=== PATIENT | male | born 1985 | race Caucasian/White ===

== ENCOUNTER 2019-11-21 12:25 | Emergency (ER) | payer OTHER, SELFPAY ==
[2019-11-21 12:43] VITALS: BP 135/110; PULSE 70; RESP 18; TEMP 36.9; O2SAT 96; BMI 34.8
--- NOTE | 2019-11-21 12:57 | DI.RAD.S_ITS ---
PROCEDURE: XR HIP W PEL IF DONE RT 2V INDICATIONS: Right groin, hip, pelvis pain TECHNIQUE: AP pelvis with lateral view(s) of the right hip(s). COMPARISON: None. FINDINGS: Bones: No fractures or dislocations. Pelvic ring appears intact. No suspicious bony lesions. There is moderate left-sided and mild right-sided hip joint space narrowing. Soft tissues: The visualized bowel gas pattern is normal. No suspicious soft tissue calcifications. IMPRESSION: Hip joint space narrowing is seen, left worse than right. If it would be helpful for clinical management decision making, please consider a dedicated MRI for further evaluation (assuming that there is no contraindication). If there is strong clinical concern for a labral abnormality, this should be performed according to the arthrogram protocol. Dictated by: Alex Alonzo M.D. on 11/21/2019 at 12:24 Approved by: Alex Alonzo M.D. on 11/21/2019 at 12:25
--- NOTE | 2019-11-21 13:02 | ED_ITS ---
HPI - Back Pain/Injury <Lizandro HallEVIN Merchant - Last Filed: 11/21/19 23:01> General Chief Complaint: Back Pain/Injury Stated Complaint: right side hip pain, radiates down leg Time Seen by Provider: 11/21/19 12:38 Source: patient Limitations: no limitations History of Present Illness HPI Narrative: This is a 34-year-old male, smoker, who presents to ED with his sister with chief complain of right low back pain radiating to right groin and anterior aspect of limb down to his foot for last 8 days. Patient reports he had taken an accidental fall 3 days prior to his back pain started and landed on his left side of body when he went away for hunting but this did not bothered him for 3 days. Patient reports pain increases with sitting, leg raise and lying on his back to go to sleep. He has describes pain as pressure and rates as a 7/10. Patient wanted to see a chiropractor a couple of days ago but they're not available. Patient denies fever, chills, nausea or vomiting, urinary problems or incontinence for urine and stools. Patient denies recent manipulation or surgeries on his back. Patient does have history of chronic right-sided low back pain radiating to right buttock. Related Data Previous Rx's Medication Instructions Recorded penicillin V potassium 500 mg PO Q6H 7 Days #0 tab 12/20/16 cyclobenzaprine 10 mg PO Q12H #10 tab 11/21/19 hydrocodone-acetaminophen [[place]] 1 tab PO TID PRN #7 tab 11/21/19 prednisone 40 mg PO DAILY 4 Days #8 tab 11/21/19 Allergies Allergy/AdvReac Type Severity Reaction Status Date / Time No Known Drug Allergies Allergy Verified 11/21/19 12:43 Review of Systems <Lizandro LuisEVIN borrego - Last Filed: 11/21/19 23:01> Review of Systems Narrative: General: Denies fever, chills, fatigue, malaise, sweats. HEENT: Denies sinus pain, ear pain, sore throat, difficulty swallowing, dizziness. Respiratory: Denies dyspnea, cough, wheezing, hemoptysis, sputum. Cardiovascular: Denies chest pain, palpitations, orthopnea, edema. Gastrointestinal: Denies nausea, vomiting, abdominal pain, diarrhea, constipation, melena. : Denies dysuria, frequency, incontinence, hematuria, urinary retention. Musculoskeletal: See HPI Skin: Denies rash, skin lesions, or other. Neurologic: Denies weakness, headache, numbness, change in speech, confusion, seizures, incoordination. Psychiatric: No concerning psychosocial issues. 12-point review of systems is negative except for those stated above. Patient History <EVIN Ortega - Last Filed: 11/21/19 23:01> Medical History Low back pain (Acute) Surgical History No pertinent past surgical history (Acute) Social History Smoking Status: Current every day smoker Smoking Status: Current every day smoker Substance Use Type: marijuana Exam <EVIN Ortega - Last Filed: 11/21/19 23:01> Narrative Exam Narrative: General appearance: well developed, well nourished, appears to be in discomfort and tearful. Head: normocephalic, atraumatic, no scalp lesions, non-tender. ENT: Bilateral auditory canals and tympanic membranes clear. Hearing grossly intact. Nose without bleeding, purulent discharge, septal hematoma or deviation. Turbinate without erythema or swelling. Facial sinuses nontender to palpate. Mucous membrane moist, no mucosal lesion. Throat without erythema, tonsillar hypertrophy or exudate. Uvula in midline, airway patent. Neck/Thyroid: neck supple, full range of motion, no visible masses or meningeal signs. No JVD, non-tender without lymphadenopathy. Skin: no suspicious rashes, lesions over visible areas. Warm and dry and appropriate color for ethnicity. Heart: no clubbing, no cyanosis, no edema. S1 and S2 normal. RRR w/o murmurs, clicks, or bruits. Lungs: Breathing even and unlabored. No stridor. No accessory muscles used. Able to speak in full sentences. Chest: normal shape and expansion. Abdomen: non-obese, non-distended. Neurologic: alert and oriented. 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 Psych: good eye contact, normal affect. Initial Vital Signs Initial Vital Signs: Vital Signs Temperature 98.4 F 11/21/19 12:43 Pulse Rate 70 11/21/19 12:43 Respiratory Rate 18 11/21/19 12:43 Blood Pressure 135/110 H 11/21/19 12:43 Pulse Oximetry 96 11/21/19 12:43 Back/Spine/Pelvis Back: normal to inspection, back tenderness (Right lower lumbar), No CVA tenderness, No ecchymosis, No erythema, No mass and No warmth Thoracic/Lumbar Spine: thoracic and lumbar spine normal to inspection, No surgical scar(s) present, No bend over test abnormal, pain with thoraco-lumbar ROM (Mildly increased pain with twisting, able to flex forward w/o difficulty), paraspinal tenderness (On right-sided), No scoliosis, No thoracic spinal tenderness, No lumbar spinal tenderness, straight leg raise positive and No tilt present <Katia Xie DO - Last Filed: 11/22/19 16:25> Initial Vital Signs Initial Vital Signs: Vital Signs Temperature 98.4 F 11/21/19 12:43 Pulse Rate 70 11/21/19 12:43 Respiratory Rate 18 11/21/19 12:43 Blood Pressure 135/110 H 11/21/19 12:43 Pulse Oximetry 96 11/21/19 12:43 Scores <EVIN Ortega - Last Filed: 11/21/19 23:01> GCS Fabrice coma scale eye opening: Spontaneous [place] coma scale verbal response: Orientated [place] coma scale motor response: Obey commands Fabrice coma scale total score: 15 Course <EVIN Ortega - Last Filed: 11/21/19 23:01> Orders Ordered: Discontinued Medications Acetaminophen (Tylenol) 975 mg PO NOW ONE Stop: 11/21/19 12:58 Last Admin: 11/21/19 13:11 Dose: 975 mg Documented by: RACHELE Cyclobenzaprine HCl (Flexeril) 10 mg PO NOW ONE Stop: 11/21/19 12:58 Last Admin: 11/21/19 13:12 Dose: 10 mg Documented by: RACHELE Ketorolac Tromethamine (Toradol) 30 mg IM NOW ONE Stop: 11/21/19 12:58 Last Admin: 11/21/19 13:12 Dose: 30 mg Documented by: RACHELE Prednisone (Deltasone) 40 mg PO NOW ONE Stop: 11/21/19 13:00 Last Admin: 11/21/19 13:12 Dose: 40 mg Documented by: RACHELE Vital Signs Vital signs: Vital Signs - 8 hr 11/21/19 15:33 Pulse Rate 92 H Respiratory Rate 18 Blood Pressure [Left Arm] 135/95 H Pulse Oximetry 97 <Katia Xie DO - Last Filed: 11/22/19 16:25> Orders Ordered: Discontinued Medications Acetaminophen (Tylenol) 975 mg PO NOW ONE Stop: 11/21/19 12:58 Last Admin: 11/21/19 13:11 Dose: 975 mg Documented by: RACHELE Cyclobenzaprine HCl (Flexeril) 10 mg PO NOW ONE Stop: 11/21/19 12:58 Last Admin: 11/21/19 13:12 Dose: 10 mg Documented by: RACHELE Ketorolac Tromethamine (Toradol) 30 mg IM NOW ONE Stop: 11/21/19 12:58 Last Admin: 11/21/19 13:12 Dose: 30 mg Documented by: RACHELE Prednisone (Deltasone) 40 mg PO NOW ONE Stop: 11/21/19 13:00 Last Admin: 11/21/19 13:12 Dose: 40 mg Documented by: RACHELE Vital Signs Vital signs: Vital Signs - 8 hr 11/21/19 15:33 Pulse Rate 92 H Respiratory Rate 18 Blood Pressure [Left Arm] 135/95 H Pulse Oximetry 97 MDM - Back Pain/Injury <Lizandro EVIN Adhikari - Last Filed: 11/21/19 23:01> Differential Diagnosis Differential diagnosis: Likely lumbar radiculopathy, sciatica and strain of lumbar region Medical Records Attestation: I reviewed the patient's medical records. Imaging Data XR-Hip: Radiologist's Impression: [address] [address] XRay Report Signed Patient: Vitor Freeman#: [id number] : 1985Acct:[id number] Age/Sex: 34 / MDate of Service: 11/21/19 Loc: ED Accession Number: [id number] Procedure: XR hip w pel if done RT 2V Ordering Provider: Lizandro Adhikari PROCEDURE: XR HIP W PEL IF DONE RT 2V INDICATIONS: Right groin, hip, pelvis pain TECHNIQUE: AP pelvis with lateral view(s) of the right hip(s). COMPARISON: None. FINDINGS: Bones: No fractures or dislocations. Pelvic ring appears intact. No suspicious bony lesions. There is moderate left-sided and mild right-sided hip joint space narrowing. Soft tissues: The visualized bowel gas pattern is normal. No suspicious soft tissue calcifications. IMPRESSION: Hip joint space narrowing is seen, left worse than right. If it would be helpful for clinical management decision making, please consider a dedicated MRI for further evaluation (assuming that there is no contraindication). If there is strong clinical concern for a labral abnormality, this should be performed according to the arthrogram protocol. Dictated by: Alex Alonzo M.D. on 11/21/2019 at 12:24 Approved by: Alex Alonzo M.D. on 11/21/2019 at 12:25 [facility] Narrative Medical decision making narrative: This is a 34-year-old male who has history of low back pain with sciatica presents to ED with right low back pain radiating to buttock and groin area down to anterior right lower limb and foot for last 8 days . Patient states he had fell on left side of body 3 days prior to the onset of discomfort. Patient denies saddle anesthesia, incontinence, fever/chills, nausea or vomiting. X-ray test was obtained on his hip, showed no acute findings such as fracture or dislocation but narrowing joint space in left hip was noted, worse in left side. Patient was medicated with Flexeril, Toradol, prednisone and Tylenol with minimal improvement. Patient advised to find a PCP and get a referral to a physical therapist and further imaging test if his pain persists. Patient discharged to home with Flexeril, prednisone, small dose of [place]. Patient's sister states she has many lidocaine patch left from her back discomfort and offered to give it to her brother when I mentioned about lidocaine patch. Medication precautions were discussed with the patient and [facility] phone number has been provided. Return precautions were discussed with the patient and verbalized the understanding and agrees with treatment plan. Discharge Plan Departure Patient Disposition: Home Clinical Impression: Sciatica of right side Discharge Date/Time: 11/21/19 15:38 Instructions: DI for Back Pain With Sciatica Activity Restrictions/Additional Instructions: You have been diagnosed with [right-sided low back pain with sciatica. Show fractures or dislocation. There is moderate left-sided and mild right-sided hip joint space narrowing. If your pain persists you may need further imaging test such as MRI]. What to do: *Take your medications as directed. Flexeril and [place] may cause drowsiness so please do not take alcohol, drive, or operate heavy equipment. Flexeril and prednisone has been transmitted to [facility] in [place]. You can take over-the- counter Tylenol and or Motrin as needed for discomfort. Please insure to eat something and not to take prednisone and and ibuprofen/Motrin in empty stomach since this may cause GI irritation and ulcer. You can add [id number] omeprazole as needed for stomach irritation. *Follow up with your primary care provider in 2-3 days, call for an appointment. You may need a referral to physical therapist. You can continue with the chiropractor appointment. Let them know you were seen in the ED and that we asked you to be seen in follow up. *Return to ED if you have any new, worsening, or concerning symptoms, such as [incontinence for bladder/bowel, weakness to your extremities, rash on your back, chest pain, breathing difficulty or any acute concerns]. Prescriptions: New prednisone 20 mg tablet 40 mg PO DAILY 4 Days Qty: 8 RF: 0 cyclobenzaprine 10 mg tablet 10 mg PO Q12H Qty: 10 RF: 0 hydrocodone-acetaminophen [[place]] 5-325 mg tablet 1 tab PO TID PRN (Reason: pain) Qty: 7 RF: 0 No Action penicillin V potassium 500 MG tablet 500 mg PO Q6H 7 Days Qty: 0 RF: 0 Referrals: [facility] [Outside]
[2019-11-21] MEDS: ACETAMINOPHEN 325 MG TABLET 975 MG PO (13:11)
[2019-11-21] MEDS: KETOROLAC 60 MG/2 ML VIAL 30 MG IM (13:12)
[2019-11-21] MEDS: CYCLOBENZAPRINE 10 MG TABLET PO (13:12)
[2019-11-21] MEDS: predniSONE 20 MG TABLET 40 MG PO (13:12)
[2019-11-21 15:33] VITALS: BP 135/95; PULSE 92; RESP 18; O2SAT 97
== END 2019-11-21 15:38 | disposition home or self-care (01) ==
PROVIDERS: Emergency Provider Nurse Practitioner Family
DX: M54.41 Lumbago with sciatica, right side (principal); W18.30XA Fall on same level, unspecified, initial encounter
CPT/HCPCS: 73502; 96372; 99283; J1885

== ENCOUNTER 2023-01-05 15:58 | Emergency (ER) | payer OTHER, MEDICAID, SELFPAY ==
[2023-01-05 16:16] VITALS: BP 149/81; PULSE 87; RESP 20; TEMP 37.4; O2SAT 97; BMI 27.0
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
[2023-01-05 18:44] VITALS: PULSE 97; O2SAT 98
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
[2023-01-05 18:46] VITALS: BP 149/90; PULSE 69; O2SAT 98
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
[2023-01-05 19:00] VITALS: PULSE 93; O2SAT 98
[2023-01-05] MEDS: TET,DIPH,PERTUSS(ACELL),VAC/PF 0.5 ML SYRINGE IM (19:21)
[2023-01-05 19:27] VITALS: PULSE 85; O2SAT 98
[2023-01-05 19:28] VITALS: BP 147/95
== END 2023-01-05 19:34 | disposition home or self-care (01) ==
PROVIDERS: Emergency Provider Emergency Medicine
DX: S02.401A Maxillary fracture, unspecified side, initial encounter for closed fracture (principal); S43.402A Unspecified sprain of left shoulder joint, initial encounter; S70.10XA Contusion of unspecified thigh, initial encounter; J39.2 Other diseases of pharynx; V03.10XA Pedestrian on foot injured in collision with car, pick-up truck or van in traffic accident, initial encounter; Z23 Encounter for immunization
CPT/HCPCS: 70450; 70486; 71045; 72125; 72170; 73030; 73552; 90471; 99285; 90715